=== PATIENT | female | born 1980 | race Two or more races ===

== ENCOUNTER 2022-05-14 12:30 | Inpatient (IN) | payer OTHER ==
[~2022-05-14] VITALS: Ht 167.6 cm; Wt 78.0 kg
[2022-05-19] MEDS ORDERED: PANTOPRAZOLE SO40 MG (13:03)
== END 2022-05-22 14:11 | disposition home or self-care (01) | DRG 743 ==
LOC: O/R 05-19 07:42 → SURG 05-19 08:30 → OB/GYN 05-19 17:18
PROVIDERS: ADMIT Specialist; ATTEND Specialist
PROC: 0UT70ZZ Resection of Bilateral Fallopian Tubes, Open Approach (ICD-10-PCS; 2022-05-19)
PROC: 0UT90ZZ Resection of Uterus, Open Approach (ICD-10-PCS; principal; 2022-05-19 08:30)
DX: D25.1 Intramural leiomyoma of uterus (principal); D25.2 Subserosal leiomyoma of uterus; D25.0 Submucous leiomyoma of uterus; N84.1 Polyp of cervix uteri; Z20.822 Contact with and (suspected) exposure to COVID-19; N72 Inflammatory disease of cervix uteri